=== PATIENT | male | born 1970 | race American Indian/Alaskan Native ===

== ENCOUNTER 2018-02-04 20:33 | Emergency (ER) | payer OTHER ==
[2018-02-04] MEDS ORDERED: TORADOL IM ONE (21:32)
[2018-02-04] MEDS ORDERED: PERCOCET 5/325 PO ONE (21:32)
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
[2018-02-04 22:39] VITALS: BP 123/85
== END 2018-02-04 23:52 | disposition home or self-care (01) ==
LOC: ED 20:33
DX: M79.651 Pain in right thigh (principal); Z87.891 Personal history of nicotine dependence; Z88.8 Allergy status to other drugs, medicaments and biological substances; V48.5XXA Car driver injured in noncollision transport accident in traffic accident, initial encounter; Y93.89 Activity, other specified; Y99.8 Other external cause status; Y92.410 Unspecified street and highway as the place of occurrence of the external cause
CPT/HCPCS: 72170; 73552; 96372; 99284; J1885